=== PATIENT | male | born 1995 | race Caucasian/White ===

== ENCOUNTER 2024-08-02 07:52 | Outpatient (CLI) | payer BC, SELFPAY ==
--- NOTE | 2024-08-28 09:07 | WPDSLEEPSTUD ---
Sleep Study Date of Study: 08/02/24 Ordering Provider: Aga Jaimes MD Interpreting Physician: Nisha Graham DO Sleep Study Type: CPAP Titration Height: 1.88 m Weight: 154.221 kg Body Mass Index: 43.6 Neck Circumference (inches): 20 [place]: 10 Reason for Sleep Study Previously diagnosed TONG but couldn't tolerate CPAP Sleep History The patient is a 29-year-old male with previously diagnosed sleep apnea that had a sleep study ordered by his melon packer to optimize PAP pressure settings. The patient occasionally awakens from sleep short of breath. He rarely awakens at night with heartburn, belching or cough. He constantly snores loudly enough that others complain. He occasionally has trouble sleeping when he has a cold. He denies waking up gasping for air throughout the night. He occasionally has breathing problems at night observed by himself or others. He occasionally sweats excessively at night. He denies having heart palpitations or irregular heartbeats during the night. He occasionally falls asleep during the day but never while driving. He denies sleep paralysis, cataplexy and hypnagogic / hypnopompic hallucinations. He rarely has trouble at school or work due to sleepiness. He denies feeling afraid of going to sleep. He occasionally has nightmares. He frequently remembers his dreams. He occasionally has thoughts racing through his mind. He rarely feels sad or depressed. He rarely has anxiety. He denies having muscular tension. He denies noticing parts of his body jerk. He rarely kicks during the night. He rarely has crawling and aching feelings in his legs rarely has leg pain during the night. He denies grinding his teeth during sleep and denies awakening with morning jaw pain. He is rarely bothered by pain during the day and rarely awakened by pain during the night. He occasionally wakes up feeling stiff in the morning. He denies waking up with sore or achy muscles. He rarely wakes up with pain in the neck, spine or other joints. He goes to bed at 11:00 p.m. on weekdays and at midnight on the weekends. It takes him 15-60 minutes to fall asleep. He wakes up 1-3 times throughout the night to urinate or due to difficulty with CPAP. He is able to fall back asleep within 15 minutes. He does not have a set wake up time on either weekdays or weekends. He typically gets 9 hours of sleep per night. He will stay in bed for 5 minutes after waking up in the morning. He currently lives with his . He denies consuming any caffeinated beverages within 2 hours of bedtime. He denies engaging in physical exercise before bedtime. He denies reading and watching television before falling asleep. He will occasionally take naps in the afternoon or the evening and they are refreshing. He consumes less than 1 caffeinated beverage per day. He denies tobacco, alcohol and recreational drug use. [facility] Past Medical History Medical History GERD (gastroesophageal reflux disease) Obstructive sleep apnea Family History Family History Father Hypertension Social History Social History Smoking status: Never smoker Alcohol intake: never Medications Home Medications Medication Instructions Recorded Confirmed Type cetirizine 10 mg capsule (All Day 10 mg PO DAILY PRN 09/29/23 05/08/24 History Allergy (cetirizine)) lansoprazole 30 mg capsule,delayed 30 mg PO DAILY 09/29/23 05/08/24 History release eszopiclone 2 mg tablet (Lunesta) 2 mg PO QHS PRN sleep deprivation 01/22/24 05/08/24 Rx #30 tabs Sleep Procedure A full night CPAP Titration using the Inspirotec SleepExpan multi-channel system recorded the standard physiologic parameters including EEG, EOG, submentalis EMG, anterior tibialis EMG, EKG, body position, nasal and oral airflow using nasal pressure sensor and thermistor.? Respiratory parameters of chest and abdominal movements were recorded with Respiratory Inductance Plethysmography belts. Oxygen saturation was recorded by pulse oximetry. Video monitoring was also performed. Sleep stages, periodic limb movements, and EEG arousals were scored in 30 second epochs according to the criteria of the AASM Scoring Manual. The Apnea-Hypopnea Index was calculated using [facility] guidelines for definition of hypopnea with 4% O2 desaturations while scoring respiratory events. Sleep Architecture The total recording time was 417.8 minutes.? The total sleep time was 401.5 minutes. Sleep latency was 2.4 minutes. REM latency was 89.5 minutes. Sleep efficiency was 96.1%. The patient had 15 awakenings for an awakening index of 2.2. Wake after Sleep Onset time was 14.0 minutes. The patient spent 24.5 minutes, 6.1% of total sleep time in Stage N1. The patient spent 237.0 minutes, 59.0% in Stage N2. The patient spent 89.5 minutes, 22.3% in Stage N3. The patient spent 50.5 minutes, 12.6% in Stage REM. Respiratory Analysis The patient had 25 hypopneas for an overall Apnea Hypopnea Index of 3.7 events per hour. The REM Apnea Hypopnea Index was 10.7. The NREM Apnea Hypopnea Index was 2.7. The patient had a Central Apnea Hypopnea Index of 0. There were 17 Respiratory Effort Related Arousals resulting in a RERA index of 2.5 events per hour. The Respiratory Disturbance Index is 6.3 events per hour. There was no evidence of Nathanael-Ortiz Respirations. The patient was started on CPAP 5 cm H2O and titrated CPAP 17 cm H2O due to hypopneas. The patient was able to fall asleep starting on CPAP 5 cm H2O. The patient was able to achieve REM sleep starting on CPAP 11 cm H2O. The patient was able to achieve a residual AHI less than 5 with both NREM and REM sleep on 13 cm H2O and 15 cm H2O. On CPAP 15 cm H2O, the patient spent 68 minutes in NREM and 30 minutes in REM with 5 hypopneas, resulting in an AHI of 3.1. The patient had a sleep efficiency of 98% on this pressure setting. There was significant snoring on this pressure setting which is why he was titrated to 17 cm H2O. Arousals There were 108 total arousals for an arousal index of 16.1. There were 73 spontaneous arousals for an index of 10.9. ?There were 23 arousals due to respiratory events for an index of 3.4. There were 0 arousals due to periodic limb movements for an index of 0.? There were 12 arousals due to isolated limb movements for an index of 1.8. Periodic Limb Movements The patient had 25 isolated limb movements with an index of 3.7. The patient had 0 periodic limb movements with index of 0. Patient had a total of 25 limb movements with a total limb movement index of 3.7. Oximetry Data The patient had an average oxygen saturation of 94.6% in sleep with a minimum oxygen saturation of 89.0% and a maximum oxygen saturation of 98.0%. The patient had 27 oxygen desaturations that were 4% or greater resulting in an Oxygen Desaturation Index of 4.0.? The patient spent 0 minutes of total sleep time with an oxygen saturation below 88%. Snoring Profile Moderate to loud snoring was present during the study. The snoring resolved once the patient was titrated to 17 cm H2O. Cardiac Profile The EKG showed normal sinus rhythm. No arrhythmias or PVCs were seen. The patient had an average pulse rate of 72.7 bpm with a minimum pulse rate of 54.0 bpm and a maximum pulse rate of 107.0 bpm. ? EEG Profile No signs of seizure activity seen. Assessment and Plan Assessment and Plan (1) Obstructive sleep apnea: Code(s): G47.33 - Obstructive sleep apnea (adult) (pediatric) Status: Acute Assessment and Plan: The patient was started on CPAP 5 cm H2O and titrated CPAP 17 cm H2O due to hypopneas. The patient's sleep apnea resolved on several pressure settings. I recommend that the patient be prescribed CPAP 17 cm H2O, size large Resmed AirTouch F20 FFM, CPAP filters/tubing and heated humidity. This should be used with all episodes of sleep.? Compliance should be reviewed within 31-90 days of starting therapy for usage greater than 4 hours per night greater than 70% of the nights. The patient should be asked about symptoms such as?excessive daytime sleepiness, quality of sleep, decreased nocturia, increased?mental functioning such as memory, mood, and concentration. Data The data obtained during this sleep study is adequate for interpretation. Certification This sleep study has been reviewed by a board certified sleep medicine physician.
[2024-09-02 14:18] VITALS: BMI 43.6
== END 2024-08-03 07:25 | disposition home or self-care (01) ==
LOC: ANHCSM 07:53
PROVIDERS: Visit Provider Internal Medicine Critical Care Medicine
DX: G47.33 Obstructive sleep apnea (adult) (pediatric) (principal)
CPT/HCPCS: 95811

== ENCOUNTER 2024-12-17 15:03 | Emergency (ER) | payer BC, SELFPAY ==
[2024-12-17 15:27] VITALS: BP 134/82; PULSE 97; RESP 18; TEMP 36.4; O2SAT 100
[2024-12-17 15:54] LABS: Add Urine Microscopic? NO; Appearance Urine Clear (Clear); Bilirubin Urine Negative (Negative); Blood Urine Negative (Negative); Color Urine Yellow (Yellow); Glucose Urine UA Negative (Negative); Ketones Urine Negative (Negative); Leukocyte Esterase Ur Negative LEU/UL (Negative); Nitrate Urine Negative (Negative); Protein Urine Negative (Negative); Urobilinogen Urine 0.2 mg/dL (<2.0); pH Urine 7.5 (5.0-9.0)
--- OUTSIDE RECORDS SUMMARY | 2024-12-17 17:06 | XMS_ITS | Encounter Summary ---
Author Organization [facility] Healthcare Address [address] [place] [address] Care Team Providers Care Fly Frame Tender Name Role Phone Gwendolyn, Fe English DO Primary Care Provider [phone] Reason for Visit * Reason Comments Prediabetes Obesity Encounter Details Date Type Department Care Team (Latest Contact Info) Description 12/17/2024 1:00 PM CDT Clinical Support [facility] [address] [place] [id number] Prediabetes (Primary Dx); Morbid obesity with BMI of 40.0-44.9, adult (HCC) Social History Tobacco Use Types Packs/Day Years Used Date Smoking Tobacco: Never Cigarettes Smokeless Tobacco: Never AUDIT-C Answer Date Recorded Q1: How often do you have a drink containing alcohol? Never 12/05/2024 Q2: How many drinks containi ng alcohol do you have on a typical day when you are drinking? Patient does not drink Q3: How often do you have si x or more drinks on one occasion? Never 12/05/2024 PHQ-2 Answer Date Recorded PHQ-2 Total Score (If total score is 3 or more points, staff should administer the PHQ-9) 0 03/06/2024 Sex and Gender Information Value Date Recorded Sex Assigned at Not on file Legal Sex Male 11:48 AM RISK INTERN Gender Identity Not on file Sexual Orientation Not on file documented as of this encounter Last Filed Vital Signs Vital Sign Reading Time Taken Comments Blood Pressure - - Pulse - - Temperature - - Respiratory Rate - - Oxygen Saturation - - Inhaled Oxygen Concentration - - Weight 153.9 kg (339 lb 4.8 oz) 12/17/2024 4:21 PM CDT Height 188 cm (6' 2.02 ) 12/17/2024 4:21 PM CDT Body Mass Index 43.54 12/17/2024 4:21 PM CDT documented in this encounter Patient Instructions * Patient Instructions* Dorys Gupta RD - 12/17/2024 1:00 PM CDT Today, we discussed your current dietary habits, health goals, and personalized nutrition recommendations. Mistry topics included: Carbs, protein, and glucose tracking Goal 1) continue tracking before/after dinner glucose 2) include afternoon snack with protein 3) include protein with breakfast Next Steps: Follow up scheduled 01/08/25 at 10:30 AM to assess progress and adjust recommendations. Start with one actionable goal. Change is difficult and can take time. Reach out with any questions or concerns before the next visit. If you have any additional concerns or need further guidance, please contact me at the above phone number. Thank you for giving me the opportunity to help you reach your health goals. documented in this encounter Progress Notes * Dorys Gupta RD - 12/17/2024 1:00 PM CDT Follow Up Visit for Medical Nutrition Therapy Encounter Date: 12/17/2024 Referring Physician: Fe Snow DO Follow up from last visit of: 11/15/2024 Mr. Jorgito Horton is a 29 y.o. male : 1995 Start Time: 1300 End Time: 1400 Total Minutes: 60 min Ht 188 cm (6' 2.02 ) Wt (!) 153.9 kg (339 lb 4.8 oz) BMI 43.54 kg/m?? Weight change: 0.86 kg (1.90 lbs) ASSESSMENT: Medical Diagnosis: 1. Prediabetes 2. Morbid obesity with BMI of 40.0-44.9, adult (HCC) Procedure Summary Date: 12/11/24 Room / Location: [facility] Anesthesia Start: Anesthesia Stop: Procedure: FOLLOW UP NUTRITION Diagnosis: Scheduled Providers: Responsible Provider: Anesthesia Type: Not recorded ASA Status: Not recorded Past Medical History: Diagnosis Date Allergies GERD (gastroesophageal reflux disease) Lactose intolerance Nosebleed Prediabetes Sleep apnea Medications and Lab Review: HOME MEDICATIONS : aaruworujrcsh-ktsckkz-xorhjsue (EXCEDRIN MIGRAINE) 250-250-65 mg per tablet azelastine (ASTELIN) 137 mcg (0.1 %) nasal spray cetirizine (ZyrTEC) 10 mg chewable tablet eszopiclone (LUNESTA) 3 mg tablet omeprazole (PriLOSEC) 40 mg capsule ALT (SGPT) Date Value Ref Range Status 10/23/2024 18 9 - 46 U/L Final AST Date Value Ref Range Status 10/23/2024 13 10 - 40 U/L Final Alk phos Date Value Ref Range Status 10/23/2024 75 36 - 130 U/L Final Lab Results Component Value Date HGBA1C 5.7 (H) 10/23/2024 HDL 32 (L) 10/23/2024 LDLCALC 96 03/09/2024 CHOL 162 10/23/2024 TRIG 153 (H) 10/23/2024 Weight History Wt Readings from Last 10 Encounters: 12/17/24 (!) 153.9 kg (339 lb 4.8 oz) 12/05/24 (!) 153 kg (337 lb 6.4 oz) 11/15/24 (!) 153.4 kg (338 lb 3.2 oz) 11/13/24 (!) 153.4 kg (338 lb 3.2 oz) 11/08/24 (!) 154.9 kg (341 lb 8 oz) 11/06/24 (!) 154 kg (339 lb 9.6 oz) 07/31/24 (!) 151 kg (333 lb) 06/26/24 (!) 154.2 kg (340 lb) 03/06/24 (!) 155.9 kg (343 lb 9.6 oz) Physical Activity: Progress in dietary/exercise habits: no. IMPRESSION 12/10/2024: Jorgito kept excellent records of intakes and BG before and after meals for all three meals. Pt noticed elevated BG after high CHO meals like Dairy Thomson and pizza and biggest increases wereafter the evening meal. Discussed relationship between activity and BG. Discussed timing of meals and incorporating afternoon snack to prevent significant increases in BG at dinner. Pt plans to continue tracking BG after dinner as that is the area that is the biggest opportunity for improvement. Ptusually has cereal for breakfast. Encouraged pt to consider adding in source of protein with the cereal. Expect good adherence. DIAGNOSIS: Food and nutrition-related knowedge deficit related to lack of prior exposure to accurate nutrition-related information and as evidenced by client hx. INTERVENTION: Include fish 3 x/week or more as a source of omea-3 fat. Consistent carbohydrate intake. Blood glucose monitoring as directed. Weight Used for Equation Calculations (RD Determined): 153.9 kg (339 lb 4.8 oz) Amalia- St. Jeor Equation (Overweight or Obese Patients): 2564 BMI (Calculated): 43.5 Activity Factor: 1.2 Total Energy Needs using Amalia-St. Jeor: 3076.8 Recommended Kcal for Weight Loss: 2400 (15 kcal/kg CBW) Type of Weight Used for Estimated Carbohydrate Needs: Adjusted Recommended CHO per meal (gm): 75 Recommended CHO per snack (gm): 15 Total Planned Daily Carbohydrate (gm): 270 Type of Weight Used for Estimated Protein : Adjusted Total Protein Estimated Needs (gm): 123.12 Total Fat Needs Based on % of Calories: [address] Jeor Total Fat Estimated Needs (gm): 102.56 Type of Weight Used for Estimated Fluid Needs: Adjusted Fluid Needs Based on : 1 ml/kcal (1500 ml adult min) Counseling Strategies: goal setting, motivational interviewing, self-monitoring, and problem solving Goals: 1) continue tracking before/after dinner glucose 2) include afternoon snack with protein 3) include protein with breakfast MONITORING AND EVALUATION: Overall Adherence Potential: Current stage according to the Transtheoretical/Stages of Change Model: Stages of Change: Action Comprehension: good Receptivity: good Engagement: good Adherence: good Jorgito stated willingness to work on the goals listed above. Follow up scheduled to monitor and evaluate intakes, BG, progress. Dorys Gupta RD Diabetes Education and Nutritional Counseling [facility] documented in this encounter Plan of Treatment Not on file documented as of this encounter Visit Diagnoses Diagnosis Prediabetes- Primary Other abnormal glucose Morbid obesity with BMI of 40.0-44.9, adult (HCC) documented in this encounter Care Teams Fly Frame Tender Relationship Specialty Start Date End Date Fe Snow DO [address] [place] [address] PCP - General Family Medicine 01/18/24 documented as of this encounter
--- OUTSIDE RECORDS SUMMARY | 2024-12-17 17:06 | XMS_ITS | Referral Summary ---
Author Organization [facility] [facility] [id number] [place] Address [address] [place] [address] Care Team Providers Care Separator Tender Name Role Phone Gwendolyn, Fe English DO Primary Care Provider [phone] Encounters Date Type Department Care Team Description 12/17/2024 1:00 PM CDT Clinical Support [facility] Nutrition Counseling [facility] [place] [address] Prediabetes (Primary Dx); Morbid obesity with BMI of 40.0-44.9, adult (HCC) 12/05/2024 9:20 AM DRY HOUSE WORKER Office Visit [facility] ([facility] - [facility] ENT [address] [place] [address] [place] [address] Belgica Pompa PA Pulsatile tinnitus of left ear (Primary Dx) 12/05/2024 8:00 AM DRY HOUSE WORKER Procedure visit [facility] Otolaryngology [address] [place] [address] [place] [address] Alexandra Jerome Au.D. Pulsatile tinnitus of left ear (Primary Dx); Ear pressure, left 11/15/2024 2:30 PM DRY HOUSE WORKER Clinical Support [facility] Nutrition Counseling [facility] [place] [address] Prediabetes (Primary Dx); Morbid obesity with BMI of 40.0-44.9, adult (HCC) 11/13/2024 12:30 PM DRY HOUSE WORKER Office Visit [facility] Family Medicine [address] [facility] [address] [place] [phone] Fe Snow, Prediabetes (Primary Dx); Adverse effect of drug, subsequent encounter; Gastroesophageal reflux disease without esophagitis; Morbid obesity with BMI of 40.0-44.9, adult (HCC); Anxiety 11/08/2024 3:15 PM DRY HOUSE WORKER Office Visit [facility] at [address] [phone] Emma Palm NP Anxiety (Primary Dx); Palpitations 11/08/2024 Nurse Triage [address] [place] [phone] Fe Snow DO 11/07/2024 Nurse Triage [address] [address] Fe Snow DO 11/06/2024 1:45 PM DRY HOUSE WORKER Office Visit [address] [place] [phone] Fe Snow DO Prediabetes (Primary Dx); Morbid obesity with BMI of 40.0-44.9, adult ([facility]); Hypertriglyceridemia ; Gastroesophageal reflux disease without esophagitis; Lactose intolerance; Bilateral lower abdominal discomfort 10/22/[address] [address] Fe Snow DO Additional Services Or Orders from Last 3 Months Allergies Active Allergy Reactions Criticality Noted Date Comments Cow Dander Itching Low 12/05/2024 Histamine Itching Low 12/05/2024 House Dust Mite Itching Low 12/05/2024 [place] Itching Low 12/05/2024 Plantain, Plant Itching Low 12/05/2024 Ragweed Itching Low 12/05/2024 Tree Pollen-Mason Itching Low 12/05/2024 [place] Pollen-Irish Thistle Itching Low 12/05/19 Happy Bark-Red [place]-Borage Itching Low 2024 Medications azelastine (ASTELIN) 137 mcg (0.1 %) nasal spray SPRAY 1 SPRAY INTO EACH NOSTRIL EVERY DAY 4 Active eszopiclone (LUNESTA) 3 mg tablet PLEASE SEE ATTACHED FOR DETAILED DIRECTIONS 5 Active acetaminophen-as pirin-caffeine (EXCEDRIN MIGRAINE) 250-250-65 mg per tablet Take 2 tablets by mouth every 6 (six) hours as needed for headaches Active cetirizine (ZyrTEC) 10 mg chewable tablet Take 1 tablet (10 mg total) by mouth daily Active omeprazole (PriLOSEC) 40 mg capsuleIndicatio ns:Gastroesophag eal reflux disease without esophagitis Take 1 capsule (40 mg total) by mouth daily 30 capsule 3 5 Active Active Problems Problem Noted Date Diagnosed Date Pulsatile tinnitus of left ear 12/05/2024 Chronic eczematous otitis externa of both ears 0 07/04/2024 Assessment & Plan (07/04/2024 3:09 PM CDT): Avoid ear cleaning techniques Avoid water to ears Lotrisone cream to outer portion of ear canal twice daily for 2 weeks and then as needed Vinegar and alcohol discussed and Handout provided Prediabetes 03/18/2024 Hypertriglyceridemia 03/18/2024 Morbid obesity with BMI of 40.0-44.9, adult 02/07 Gastroesophageal reflux disease without esophagi tis 03/06/2024 TONG on CPAP 03/06/2024 Immunizations Immunization Administration Dates Next Due COVID-19 mRNA ([employer]) 0.3 m L (30 mcg) vaccine (12 years and up) 12/14/2023 HPV9 09/14/2024 Hep A / Hep B 09/14/2024 Influenza, Quadrivalent, Spl it, Intramuscular 05/24/2019 Influenza, Trivalent, Cell Culture-based MDCK, Preservative Free, Antibiotic Free, Intramuscular 07/16/2021,07/31/2020 Influenza, Trivalent, Preser vative Free, Intramuscular 07/31/2024 Influenza, Unspecified 07/09/2023(Deferred: Terri ent Refused) Tdap 08/23/2024 Typhoid Inactivated 09/14/2024 Social History Tobacco Use Types Packs/Day Years Used Date Smoking Tobacco: Never Cigarettes Smokeless Tobacco: Never Tobacco Cessation:Counseling Given: Not Answered AUDIT-C Answer Date Recorded Q1: How often [...] on file Legal Sex Male 11:48 AM DRY HOUSE WORKER Gender Identity Not on file Sexual Orientation Not on file Last Filed Vital Signs Vital Sign Reading Time Taken Comments Blood Pressure 105/71 12/05/2024 8:56 AM DRY HOUSE WORKER Pulse 69 12/05/2024 8:56 AM DRY HOUSE WORKER Temperature 36.4 C (97.5 F) 11/13/2024 12:45 PM DRY HOUSE WORKER Respiratory Rate 20 11/13/2024 12:4 5 PM DRY HOUSE WORKER Oxygen Saturation 99% 11/13/2024 12: 45 PM DRY HOUSE WORKER Inhaled Oxygen Concentration - - Weight 153.9 kg (339 lb 4.8 oz) 12/17/2024 4:21 PM CDT Height 188 cm (6' 2.02 ) 12/17/2024 4:21 PM CDT Body Mass Index 43.54 12/17/2024 4:21 PM CDT Plan of Treatment Not on file Procedures Procedure Name Priority Date/Time Associated Diagnosis Comments AUDBASE RESULTS 12/05/2024 8:03 AM DRY HOUSE WORKER HEMOGLOBIN A1C Routine 10/23/2024 10:12 AM DRY HOUSE WORKER Prediabetes LIPID PANEL Routine 10/23/2024 10:12 AM DRY HOUSE WORKER Hypertriglyceridem ia COMPREHENSIVE METABOLIC PANEL Routine 10/23/2024 10:12 AM DRY HOUSE WORKER Prediabetes CBC WITH AUTO DIFFERENTIAL Routine 10/23/2024 10:12 AM DRY HOUSE WORKER Prediabetes from Last 3 Months Results * AudBase Results (12/05/2024 8:03 AM DRY HOUSE WORKER) Provider Scanning AUDIOLOGY SERVICES ORDERABLES Final Result * (ABNORMAL) CBC with auto differential (10/23/2024 10:12 AM DRY HOUSE WORKER) WBC 8.1 3.8 - 10.8 Thousand/u L [facility] RBC, POC 5.31 4.20 - 5.80 Million/uL [facility] Hgb 14.7 13.2 - 17.1 g/dL [facility] Hct 46.2 38.5 - 50.0 % [facility] MCV 87.0 80.0 - 100.0 fL [facility] MCH 27.7 27.0 - 33.0 pg [facility] MCHC 31.8(L) 32.0 - 36.0 g/dL [facility] Comment: For adults, a slight decrease in the calculated MCHC value (in the range of 30 to 32 g/dL) is most likely not clinically significant; however, it should be interpreted with caution in correlation with other red cell parameters and the patient's clinical condition. Rdw 13.2 11.0 - 15.0 % [facility] Platelets 235 140 - 400 Thousand/u L [facility] MPV 10.7 7.5 - 12.5 fL [facility] Neutrophils, abs 5,046 1,500 - 7,800 cells/uL [facility] Lymphocytes, abs 2,082 850 - 3,900 cells/uL [facility] Monocyte abs 462 200 - 950 cells/uL [facility] Eosinophils, abs 437 15 - 500 cells/uL [facility] Basophils, abs 73 0 - 200 cells/uL [facility] Neutrophils 62.3 % [facility] Lymphocyte pct 25.7 % [facility] Monocytes 5.7 % [facility] Eosinophils 5.4 % [facility] Basophils 0.9 % [facility] Blood 10/23/2024 10:1 2 AM DRY HOUSE WORKER 10/23/2024 10:15 AM DRY HOUSE WORKER Narrative [facility] - 10/23/2024 10:05 PM DRY HOUSE WORKER FASTING:YES FASTING: YES us Fe Snow DO LAB BLOOD ORDERABLES Final Resul t Performing Organization Address [facility] de Phone Number [facility] [address] [place] [address] * (ABNORMAL) Hemoglobin A1c (10/23/2024 10:12 AM DRY HOUSE WORKER) Hgb A1C 5.7(H) <5.7 % of total Hgb [facility] Comment: For someone without known diabetes, a hemoglobin A1c value between 5.7% and 6.4% is consistent with prediabetes and should be confirmed with a follow-up test. For someone with known diabetes, a value <7% indicates that their diabetes is well controlled. A1c targets should be individualized based on duration of diabetes, age, comorbid conditions, and other considerations. This assay result is consistent with an increased risk of diabetes. Currently, no consensus exists regarding use of hemoglobin A1c for diagnosis of diabetes for children. Blood 10/23/2024 10:1 2 AM DRY HOUSE WORKER 10/23/2024 10:15 AM DRY HOUSE WORKER Narrative [facility] - 10/23/2024 10:05 PM DRY HOUSE WORKER FASTING:YES FASTING: YES us Fe Snow DO LAB BLOOD ORDERABLES Final Resul t Performing Organization Address [facility] de Phone Number [facility] [address] [place] [address] * (ABNORMAL) Lipid panel (10/23/2024 10:12 AM DRY HOUSE WORKER) Cholesterol 162 <200 mg/dL [facility] HDL 32(L) > OR = 40 mg/dL [facility] Triglycerides 153(H) <150 mg/dL [facility] LDL 103(H) mg/dL (calc) [facility] Comment: Reference range: <100 Desirable range <100 mg/dL for primary prevention; <70 mg/dL for patients with CHD or diabetic patients with > or = 2 CHD risk factors. LDL-C is now calculated using the Addie calculation, which is a validated novel method providing better accuracy than the Friedewald equation in the estimation of LDL-C. Dell MORALES et al. RALPH. 2013;310(19): 8441-2435 (http://education.JobSync/faq/SAY720) Chol/HDL ratio 5.1(H) <5.0 (calc) [facility] Garcia Non-HDL, (LDL+VLDL) 130(H) <130 mg/dL (calc) [facility] Comment: For patients with diabetes plus 1 major ASCVD risk factor, treating to a non-HDL-C goal of <100 mg/dL (LDL-C of <70 mg/dL) is considered a therapeutic option. Blood 10/23/2024 10:1 2 AM DRY HOUSE WORKER 10/23/2024 10:15 AM DRY HOUSE WORKER Narrative [facility] - 10/23/2024 10:05 PM DRY HOUSE WORKER FASTING:YES FASTING: YES Fe Snow DO LAB BLOOD ORDERABLES Final Resul t [facility] [address] [place] [address] * Comprehensive metabolic panel (10/23/2024 10:12 AM DRY HOUSE WORKER) [facility] Glucose 94 65 - 99 mg/dL [facility] Garcia Comment: Fasting reference interval BUN 13 7 - 25 mg/dL [facility] KakKstatiDeborah Garcia Creatinine 0.83 0.60 - 1.26 mg/dL [employer] [facility] eGFR 120 > OR = 60 mL/min/1.7 3m2 [facility] Garcia BUN/creat ratio SEE NOTE: 6 - 22 (calc) Harish KakKstatiDeborah Garcia Comment: Not Reported: BUN and Creatinine are within reference range. Sodium 138 135 - 146 mmol/L [facility] khushbu Garcia Potassium, pl 4.4 3.5 - 5.3 mmol/L [employer] Esthela-S khushbu Garcia Chloride 100 98 - 110 mmol/L [facility] Garcia CO2 32 20 - 32 mmol/L [facility] Garcia Calcium 9.8 8.6 - 10.3 mg/dL [facility] Protein, sr 7.6 6.1 - 8.1 g/dL [facility] Albumin 4.6 3.6 - 5.1 g/dL [facility] GLOBULIN 3.0 1.9 - 3.7 g/dL (calc) [facility] Alb/glob ratio 1.5 1.0 - 2.5 (calc) [facility] Bilirubin, total 0.6 0.2 - 1.2 mg/dL [facility] Alk phos 75 36 - 130 U/L [facility] AST 13 10 - 40 U/L [facility] ALT (SGPT) 18 9 - 46 U/L [facility] Blood 10/23/2024 10:1 2 AM DRY HOUSE WORKER 10/23/2024 10:15 AM DRY HOUSE WORKER Narrative [facility] - 10/23/2024 10:05 PM DRY HOUSE WORKER FASTING:YES FASTING: YES Fe Snow DO LAB BLOOD ORDERABLES Final Resul t [facility] [address] [place] [address] from Last 3 Months Insurance [place] Care Teams Separator Tender Relationship Specialty Start Date End Date Fe Snow DO [address] [place] [address] PCP - General Family Medicine 01/18/24
--- OUTSIDE RECORDS SUMMARY | 2024-12-17 17:06 | XMS_ITS | Clinical Summary ---
Author Organization [place] [id number] [place] Address [address] [place] [address] Care Team Providers Care Snath Handle Assembler Name Role Phone Gwendolyn, Fe English DO Primary Care Provider [phone] Allergies Active Allergy Reactions Criticality Noted Date Comments Cow Dander Itching Low 12/05/2024 Histamine Itching Low 12/05/2024 House Dust Mite Itching Low 12/05/2024 [place] Itching Low 12/05/2024 Plantain, Plant Itching Low 12/05/2024 Ragweed Itching Low 12/05/2024 Tree Pollen-Clarence Itching Low 12/05/2024 [place]ane Pollen-Moroccan Thistle Itching Low 12/05/19 25 [place] Bark-Red [place]-Borage Itching Low 2024 Medications azelastine (ASTELIN) 137 [...] esophagi tis 03/06/2024 TONG on CPAP 03/06/2024 Encounters Date Type Department Care Team Description 12/17/2024 1:00 PM CDT Clinical Support [facility] Nutrition Counseling [address] [place] [address] Prediabetes (Primary Dx); Morbid obesity with BMI of 40.0-44.9, adult ([facility]) 12/05/2024 9:20 AM EMERGENCY DISPATCHER Office Visit [facility] ([facility]) - [facility] ENT [address] 11[address] [place] [address] [place] [address] Belgica Pompa PA Pulsatile tinnitus of left ear (Primary Dx) 12/05/2024 8:00 AM EMERGENCY DISPATCHER Procedure visit [facility] Otolaryngology [address] [place] [address] [place] [address] Alexandra Jerome Au.D. Pulsatile tinnitus of left ear (Primary Dx); Ear pressure, left 11/15/2024 2:30 PM EMERGENCY DISPATCHER Clinical Support [facility] Nutrition Counseling [address] [place] [address] Prediabetes (Primary Dx); Morbid obesity with BMI of 40.0-44.9, adult (HCC) 11/13/2024 12:30 PM EMERGENCY DISPATCHER Office Visit [facility] Family Medicine [address] [facility] [address] [place] [phone] Fe Snow, DO Prediabetes (Primary Dx); Adverse effect of drug, subsequent encounter; Gastroesophageal reflux disease without esophagitis; Morbid obesity with BMI of 40.0-44.9, adult (HCC); Anxiety 11/08/2024 3:15 PM EMERGENCY DISPATCHER Office Visit [facility] Care at [address] [phone] Emma Palm NP Anxiety (Primary Dx); Palpitations 11/08/2024 Nurse Triage [address] [place] [phone] Fe Snow DO 11/07/2024 Nurse Triage [address] [place] [phone] Fe Snow DO 11/06/2024 1:45 PM EMERGENCY DISPATCHER Office Visit [address] [place] [phone] Fe Snow DO Prediabetes (Primary Dx); Morbid obesity with BMI of 40.0-44.9, adult ([facility]); Hypertriglyceridemia ; Gastroesophageal reflux disease without esophagitis; Lactose intolerance; Bilateral lower abdominal discomfort 10/22/[address] [place] [phone] Fe Snow DO Additional Services Or Orders from Last 3 Months Immunizations Immunization Administration Dates Next Due COVID-19 mRNA ([employer]) 0.3 m L (30 mcg) vaccine (12 years and up) 12/14/2023 HPV9 09/14/2024 Hep A / Hep B 09/14/2024 Influenza, Quadrivalent, Spl it, Intramuscular 05/24/2019 Influenza, Trivalent, Cell Culture-based MDCK, Preservative Free, Antibiotic Free, Intramuscular 07/16/2021,07/31/2020 Influenza, Trivalent, Preser vative Free, Intramuscular 07/31/2024 Influenza, Unspecified 07/09/2023(Deferred: Terri ent Refused) Tdap 08/23/2024 Typhoid Inactivated 09/14/2024 Medical History Medical History Date Comments Sleep apnea Lactose intolerance GERD (gastroesophageal reflux disease) Allergies Nosebleed Prediabetes Family History Medical History Relation Name Comments Hypertension Father Gerardo Sleep apnea Father Gerardo Relation Name Status Comments Father Gerardo Alive Social History Tobacco Use Types Packs/Day Years [...] on file Legal Sex Male 11:48 AM EMERGENCY DISPATCHER Gender Identity Not on file Sexual Orientation Not on file Obstetrics History Last Filed Vital Signs Vital Sign Reading Time Taken Comments Blood Pressure 105/71 12/05/2024 8:56 AM EMERGENCY DISPATCHER Pulse 69 12/05/2024 8:56 AM EMERGENCY DISPATCHER Temperature 36.4 C (97.5 F) 11/13/2024 12:45 PM EMERGENCY DISPATCHER Respiratory Rate 20 11/13/2024 12:4 5 PM EMERGENCY DISPATCHER Oxygen Saturation 99% 11/13/2024 12: 45 PM EMERGENCY DISPATCHER Inhaled Oxygen Concentration - - Weight 153.9 kg (339 lb 4.8 oz) 12/17/2024 4:21 PM CDT Height 188 cm (6' 2.02 ) 12/17/2024 4:21 PM CDT Body Mass Index 43.54 12/17/2024 4:21 PM CDT Plan of Treatment Health Maintenance Due Date Last Done Comments Hepatitis C Screening 1993 Varicella Vaccines (1 of 2 - 13+ 2-dose series) 2006 HPV Vaccines (2 - 3-dose SCDM series) 10/12/2024 09/14/2024 Depression Screening 03/06/2025 03/06/2024 Regular Well Visit/Exam 18-64 03/06/2025 03/06/2024 DTaP/Tdap/Td Vaccine (2 - Td or Tdap) 08/23/2034 08/23/2024 Influenza Vaccine Completed 07/31/2024, , 07/31/2020, Additional history exists Covid-19 Vaccine Completed 08/23/2024, 04/2024, 09/10/2021, Additional history exists Hepatitis B Screening Completed 09/14/2024 Pneumococcal vaccine <65 Aged Out No longer eligible based on patient's age to complete this topic Procedures Procedure Name Priority Date/Time Associated Diagnosis Comments AUDBASE RESULTS 12/05/2024 8:03 AM EMERGENCY DISPATCHER HEMOGLOBIN A1C Routine 10/23/2024 10:12 AM EMERGENCY DISPATCHER Prediabetes LIPID PANEL Routine 10/23/2024 10:12 AM EMERGENCY DISPATCHER Hypertriglyceridem ia COMPREHENSIVE METABOLIC PANEL Routine 10/23/2024 10:12 AM EMERGENCY DISPATCHER Prediabetes CBC WITH AUTO DIFFERENTIAL Routine 10/23/2024 10:12 AM EMERGENCY DISPATCHER Prediabetes from Last 3 Months Results * AudBase Results (12/05/2024 8:03 AM EMERGENCY DISPATCHER) us Provider Scanning AUDIOLOGY SERVICES ORDERABLES Final Result * (ABNORMAL) CBC with auto differential (10/23/2024 10:12 AM EMERGENCY DISPATCHER) WBC 8.1 3.8 - 10.8 Thousand/u L [...] 13.2 11.0 - 15.0 % [facility] Platelets 235 140 - 400 Thousand/u L [facility] MPV 10.7 7.5 - 12.5 fL [facility] Neutrophils, abs 5,046 1,500 - 7,800 cells/uL [...] Jose Lymphocyte pct 25.7 % [facility] Monocytes 5.7 % [facility] Eosinophils 5.4 % [facility] Basophils 0.9 % [facility] Garcia Blood 10/23/2024 10:1 2 AM EMERGENCY DISPATCHER 10/23/2024 10:15 AM EMERGENCY DISPATCHER Narrative [facility] - 10/23/2024 10:05 PM EMERGENCY DISPATCHER FASTING:YES FASTING: YES Fe Snow DO LAB BLOOD ORDERABLES Final Resul t HARISH [facility] [place] [address] [place] [address] * (ABNORMAL) Hemoglobin A1c (10/23/2024 10:12 AM EMERGENCY DISPATCHER) Hgb A1C 5.7(H) <5.7 % of total Hgb Harish [facility] Comment: For someone without known diabetes, [...] for children. Blood 10/23/2024 10:1 2 AM EMERGENCY DISPATCHER 10/23/2024 10:15 AM EMERGENCY DISPATCHER Narrative [facility] - 10/23/2024 10:05 PM EMERGENCY DISPATCHER FASTING:YES FASTING: YES us Fe Snow DO LAB BLOOD ORDERABLES Final Resul t [facility] [address] [place] [address] * (ABNORMAL) Lipid panel (10/23/2024 10:12 AM EMERGENCY DISPATCHER) Pathologist [facility] Cholesterol 162 <200 mg/dL Harish [facility] Medical[facility] khushbu Garcia HDL 32(L) > OR = 40 mg/dL [facility]bu Garcia Triglycerides 153(H) <150 mg/dL [facility] Garcia LDL 103(H) mg/dL (calc) [facility] Garcia Comment: Reference range: <100 Desirable range <100 mg/dL for primary prevention; <70 mg/dL for patients with CHD or diabetic patients with > or = 2 CHD risk factors. LDL-C is now calculated using the Dell-Abreu calculation, which is a validated novel method providing better accuracy than the Friedewald equation in the estimation of LDL-C. Dell SS et al. RALPH. 2013;310(19): 6012-5595 (http://education.Bujbu/faq/QFA922) Chol/HDL ratio 5.1(H) <5.0 (calc) [facility] khushbu Garcia Non-HDL, (LDL+VLDL) 130(H) <130 mg/dL (calc) [facility] Garcia Comment: For patients with diabetes plus 1 major ASCVD risk factor, treating to a non-HDL-C goal of <100 mg/dL (LDL-C of <70 mg/dL) is considered a therapeutic option. Blood 10/23/2024 10:1 2 AM EMERGENCY DISPATCHER 10/23/2024 10:15 AM EMERGENCY DISPATCHER Narrative [facility] - 10/23/2024 10:05 PM EMERGENCY DISPATCHER FASTING:YES FASTING: YES us Fe Snow DO LAB BLOOD ORDERABLES Final Resul t HARISH Umanzor [facility] [address] [place] [address] * Comprehensive metabolic panel (10/23/2024 10:12 AM EMERGENCY DISPATCHER) Glucose 94 65 - 99 mg/dL Harish [facility] Comment: Fasting reference interval BUN 13 7 - 25 mg/dL Harish [facility] Creatinine 0.83 0.60 - 1.26 mg/dL [facility] eGFR 120 > OR = 60 mL/min/1.7 3m2 Harish [facility] BUN/creat ratio SEE NOTE: 6 - 22 (calc) Harish [facility] Garcia Comment: Not Reported: BUN and Creatinine are within reference range. Sodium 138 135 - 146 mmol/L [facility] khushbu Garcia Potassium, pl 4.4 3.5 - 5.3 mmol/L [facility] Chloride 100 98 - 110 mmol/L [facility] Garcia CO2 32 20 - 32 mmol/L [facility] Garcia Calcium 9.8 8.6 - 10.3 mg/dL [facility] Protein, sr 7.6 6.1 - 8.1 g/dL [facility] Albumin 4.6 3.6 - 5.1 g/dL [facility] GLOBULIN 3.0 1.9 - 3.7 g/dL (calc) [facility] Garcia Alb/glob ratio 1.5 1.0 - 2.5 (calc) [facility] Garcia Bilirubin, total 0.6 0.2 - 1.2 mg/dL Harish [facility] Garcia Alk phos 75 36 - 130 U/L [facility] AST 13 10 - 40 U/L [facility] ALT (SGPT) 18 9 - 46 U/L [facility] Garcia Blood 10/23/2024 10:1 2 AM EMERGENCY DISPATCHER 10/23/2024 10:15 AM EMERGENCY DISPATCHER Narrative [facility] - 10/23/2024 10:05 PM EMERGENCY DISPATCHER FASTING:YES FASTING: YES Fe Snow DO LAB BLOOD ORDERABLES Final Resul t [facility] [address] [place] [address] from Last 3 Months Insurance [employer] ACCESS CHOICE OR [employer] CHOICE OR Care Teams Snath Handle Assembler Relationship Specialty Start Date End Date Fe Snow DO [address] [place] [address] PCP - General Family Medicine 01/18/24
--- OUTSIDE RECORDS SUMMARY | 2024-12-17 18:09 | XMS_ITS | Clinical Summary ---
Author Organization [place] [id number] [place] Address [address] [place] [phone] Care Team Providers Care Biometrician Name Role Phone Gwendolyn, Fe English DO Primary Care Provider [phone] Allergies Active Allergy Reactions Criticality Noted Date Comments Cow Dander Itching Low 12/05/2024 Histamine Itching Low 12/05/2024 House Dust Mite Itching Low 12/05/2024 [place] Itching Low 12/05/2024 Plantain, Plant Itching Low 12/05/2024 Ragweed Itching Low 12/05/2024 Tree Pollen-[place] Itching Low 12/05/2024 Burt Pollen-Mongolian Thistle Itching Low 12/05/19 25 [place] Bark-Red [place]-Borage Itching Low 2024 Medications azelastine (ASTELIN) 137 [...] Description 12/17/2024 1:00 PM CDT Clinical Support [facility] Nutrition Counseling [address] [place] [address] Prediabetes (Primary Dx); Morbid obesity with BMI of 40.0-44.9, adult ([facility]) 12/05/2024 9:20 AM SOLAR SYSTEM DESIGNER Office Visit [facility] ([facility]) - [facility] ENT [address] [address] 11th [place] [address] [place] [address] Belgica Pompa PA Pulsatile tinnitus of left ear (Primary Dx) 12/05/2024 8:00 AM SOLAR SYSTEM DESIGNER Procedure visit [facility] Otolaryngology [address]th [place] [address] [place] [address] Alexandra Jerome Au.D. Pulsatile tinnitus of left ear (Primary Dx); Ear pressure, left 11/15/2024 2:30 PM SOLAR SYSTEM DESIGNER Clinical Support [facility] Nutrition Counseling [address] [place] [address] Prediabetes (Primary Dx); Morbid obesity with BMI of 40.0-44.9, adult (HCC) 11/13/2024 12:30 PM SOLAR SYSTEM DESIGNER Office Visit [facility] Family Medicine [address] [facility] [address] [place] [phone] Fe Snow, DO Prediabetes (Primary Dx); Adverse effect of drug, subsequent encounter; Gastroesophageal reflux disease without esophagitis; Morbid obesity with BMI of 40.0-44.9, adult (HCC); Anxiety 11/08/2024 3:15 PM SOLAR SYSTEM DESIGNER Office Visit [facility] Care at [address] [phone] Emma Palm NP Anxiety (Primary Dx); Palpitations 11/08/2024 Nurse Triage [address] [place] [phone] Fe Snow DO 11/07/2024 Nurse Triage [address] [place] [phone] Fe Snow DO 11/06/2024 1:45 PM SOLAR SYSTEM DESIGNER Office Visit [address] [place] [phone] Fe Snow DO Prediabetes (Primary Dx); Morbid obesity with BMI of 40.0-44.9, adult ([facility]); Hypertriglyceridemia ; Gastroesophageal reflux disease without esophagitis; Lactose intolerance; Bilateral lower abdominal discomfort 10/22/[address] [place] [phone] Fe Snow DO Additional Services Or Orders from Last 3 Months Immunizations Immunization Administration Dates Next Due COVID-19 mRNA (COGEON) 0.3 m L (30 mcg) vaccine (12 [...] on file Legal Sex Male 11:48 AM SOLAR SYSTEM DESIGNER Gender Identity Not on file Sexual Orientation Not on file Obstetrics History Last Filed Vital Signs Vital Sign Reading Time Taken Comments Blood Pressure 105/71 12/05/2024 8:56 AM SOLAR SYSTEM DESIGNER Pulse 69 12/05/2024 8:56 AM SOLAR SYSTEM DESIGNER Temperature 36.4 C (97.5 F) 11/13/2024 12:45 PM SOLAR SYSTEM DESIGNER Respiratory Rate 20 11/13/2024 12:4 5 PM SOLAR SYSTEM DESIGNER Oxygen Saturation 99% 11/13/2024 12: 45 PM SOLAR SYSTEM DESIGNER Inhaled Oxygen Concentration - - Weight 153.9 [...] Diagnosis Comments AUDBASE RESULTS 12/05/2024 8:03 AM SOLAR SYSTEM DESIGNER HEMOGLOBIN A1C Routine 10/23/2024 10:12 AM SOLAR SYSTEM DESIGNER Prediabetes LIPID PANEL Routine 10/23/2024 10:12 AM SOLAR SYSTEM DESIGNER Hypertriglyceridem ia COMPREHENSIVE METABOLIC PANEL Routine 10/23/2024 10:12 AM SOLAR SYSTEM DESIGNER Prediabetes CBC WITH AUTO DIFFERENTIAL Routine 10/23/2024 10:12 AM SOLAR SYSTEM DESIGNER Prediabetes from Last 3 Months Results * AudBase Results (12/05/2024 8:03 AM SOLAR SYSTEM DESIGNER) us Provider Scanning AUDIOLOGY SERVICES ORDERABLES Final Result * (ABNORMAL) CBC with auto differential (10/23/2024 10:12 AM SOLAR SYSTEM DESIGNER) WBC 8.1 3.8 - 10.8 Thousand/u L [...] khushbu Garcia Blood 10/23/2024 10:1 2 AM SOLAR SYSTEM DESIGNER 10/23/2024 10:15 AM SOLAR SYSTEM DESIGNER Narrative [facility] - 10/23/2024 10:05 PM SOLAR SYSTEM DESIGNER FASTING:YES FASTING: YES Fe Snow DO LAB BLOOD ORDERABLES Final Resul t HARISH Umanzor [facility] [place] [address] * (ABNORMAL) Hemoglobin A1c (10/23/2024 10:12 AM SOLAR SYSTEM DESIGNER) Hgb A1C 5.7(H) <5.7 % of total Hgb Harish [employer]-Sam Garcia Comment: For someone without known diabetes, [...] for children. Blood 10/23/2024 10:1 2 AM SOLAR SYSTEM DESIGNER 10/23/2024 10:15 AM SOLAR SYSTEM DESIGNER Narrative [facility] - 10/23/2024 10:05 PM SOLAR SYSTEM DESIGNER FASTING:YES FASTING: YES us Fe Snow DO LAB BLOOD ORDERABLES Final Resul t HARISH [facility] TechnologyFort [facility] Indian HospitalCon[facility] [address] [place] [address] * (ABNORMAL) Lipid panel (10/23/2024 10:12 AM SOLAR SYSTEM DESIGNER) Pathologist [facility] Cholesterol 162 <200 mg/dL Harish DataCertSam khushbu Garcia HDL 32(L) > OR = 40 mg/dL Prover TechnologySam khushbu Garcia Triglycerides 153(H) <150 mg/dL [employer] Times RestaurantsSam khushbu Garcia LDL 103(H) mg/dL (calc) [facility] Times RestaurantsS khushbu Garcia Comment: Reference range: <100 Desirable range <100 mg/dL for primary prevention; <70 mg/dL for patients with CHD or diabetic patients with > or = 2 CHD risk factors. LDL-C is now calculated using the Dell-Abreu calculation, which is a validated novel method providing better accuracy than the Friedewald equation in the estimation of LDL-C. Dell SS et al. RALPH. 2013;310(19): 7363-4957 (http://education.Meaningo/faq/ZWR116) Chol/HDL ratio 5.1(H) <5.0 (calc) [employer] Times RestaurantsSam khushbu Garcia Non-HDL, (LDL+VLDL) 130(H) <130 mg/dL (calc) [employer] Restaur[employer]Sam khushbu Garcia Comment: For patients with diabetes plus 1 major ASCVD risk factor, treating to a non-HDL-C goal of <100 mg/dL (LDL-C of <70 mg/dL) is considered a therapeutic option. Blood 10/23/2024 10:1 2 AM SOLAR SYSTEM DESIGNER 10/23/2024 10:15 AM SOLAR SYSTEM DESIGNER Narrative [facility] - 10/23/2024 10:05 PM SOLAR SYSTEM DESIGNER FASTING:YES FASTING: YES us Fe Snow DO LAB BLOOD ORDERABLES Final Resul t HARISH Umanzor DataCertElina Garcia [address] [place] [address] * Comprehensive metabolic panel (10/23/2024 10:12 AM SOLAR SYSTEM DESIGNER) Glucose 94 65 - 99 mg/dL Harish [employer]Sam Garcia Comment: Fasting reference interval BUN 13 7 - 25 mg/dL Harish [employer]Sam Garcia Creatinine 0.83 0.60 - 1.26 mg/dL Harish Proctor-Sam Garcia eGFR 120 > OR = 60 mL/min/1.7 3m2 Harish [employer]Sam Garcia BUN/creat ratio SEE NOTE: 6 - 22 (calc) Harish [employer]-S khushbu Garcia Comment: Not Reported: BUN and [...] ratio 1.5 1.0 - 2.5 (calc) [facility] [employer]S khushbu Garcia Bilirubin, total 0.6 0.2 - 1.2 mg/dL Harish [employer]-S khushbu Garcia Alk phos 75 36 - 130 U/L [facility] khushbu Garcia AST 13 10 - 40 U/L [facility] khushbu Garcia ALT (SGPT) 18 9 - 46 U/L [employer]-S khushbu Garcia Blood 10/23/2024 10:1 2 AM SOLAR SYSTEM DESIGNER 10/23/2024 10:15 AM SOLAR SYSTEM DESIGNER Narrative [facility] - 10/23/2024 10:05 PM SOLAR SYSTEM DESIGNER FASTING:YES FASTING: YES Fe Snow DO LAB BLOOD ORDERABLES Final Resul t [facility] [address] [place] [address] from Last 3 Months Insurance [employer]ICE [employer] [place] CHO[employer] ME Care Teams Biometrician Relationship Specialty Start Date End Date Fe Snow DO [address] [place] [address] PCP - General Family Medicine 01/18/24
--- OUTSIDE RECORDS SUMMARY | 2024-12-17 18:09 | XMS_ITS | Referral Summary ---
Author Organization [place] [id number] [place] Address [address] [place] [address] Care Team Providers Care Applications Programmer Name Role Phone Gwendolyn, Fe English DO Primary Care Provider [phone] Encounters Date Type Department Care Team Description 12/17/2024 1:00 PM CDT Clinical Support [facility] Nutrition Counseling [facility] [place] [address] Prediabetes (Primary Dx); Morbid obesity with BMI of 40.0-44.9, adult (HCC) 12/05/2024 9:20 AM SURVEYOR GEODETIC Office Visit [facility] ENT [address] [facility] 11[address] [place] [address] [place] [address] Belgica Pompa PA Pulsatile tinnitus of left ear (Primary Dx) 12/05/2024 8:00 AM SURVEYOR GEODETIC Procedure visit [facility] Otolaryngology [address] [facility] [address] [place] [address] [place] [address] Alexandra Jerome Au.D. Pulsatile tinnitus of left ear (Primary Dx); Ear pressure, left 11/15/2024 2:30 PM SURVEYOR GEODETIC Clinical Support [facility] Nutrition Counseling [facility] [place] [address] Prediabetes (Primary Dx); Morbid obesity with BMI of 40.0-44.9, adult (HCC) 11/13/2024 12:30 PM SURVEYOR GEODETIC Office [facility] Medical Group Family Medicine [address] [facility] [address] [place] [phone] Fe Snow, Prediabetes (Primary Dx); Adverse effect of drug, subsequent encounter; Gastroesophageal reflux disease without esophagitis; Morbid obesity with BMI of 40.0-44.9, adult (HCC); Anxiety 11/08/2024 3:15 PM SURVEYOR GEODETIC Office Visit [facility] at [address] [phone] Emma Palm NP Anxiety (Primary Dx); Palpitations 11/08/2024 Nurse Triage [address] [place] [phone] Fe Snow DO 11/07/2024 Nurse T[address] [phone] Fe Snow DO 11/06/2024 1:45 PM SURVEYOR GEODETIC Office Visit [address] [place] [phone] Fe Snow DO Prediabetes (Primary Dx); Morbid obesity with BMI of 40.0-44.9, adult ([facility]); Hypertriglyceridemia ; Gastroesophageal reflux disease without esophagitis; Lactose intolerance; Bilateral lower abdominal discomfort 10/22/[address] [phone] Fe Snow DO Additional Services Or Orders from Last 3 Months Allergies Active Allergy Reactions Criticality Noted Date Comments Cow Dander Itching Low 12/05/2024 Histamine Itching Low 12/05/2024 House Dust Mite Itching Low 12/05/2024 [place] Itching Low 12/05/2024 Plantain, Plant Itching Low 12/05/2024 Ragweed Itching Low 12/05/2024 Tree Pollen-[place] Itching Low 12/05/2024 [place] Pollen-[place] Islander Thistle Itching Low 12/05/19 [place] Bark-Red [place]-Borage Itching Low 2024 Medications azelastine (ASTELIN) 137 [...] Immunization Administration Dates Next Due COVID-19 mRNA (Divshot) 0.3 m L (30 mcg) vaccine (12 [...] on file Legal Sex Male 11:48 AM SURVEYOR GEODETIC Gender Identity Not on file Sexual Orientation Not on file Last Filed Vital Signs Vital Sign Reading Time Taken Comments Blood Pressure 105/71 12/05/2024 8:56 AM SURVEYOR GEODETIC Pulse 69 12/05/2024 8:56 AM SURVEYOR GEODETIC Temperature 36.4 C (97.5 F) 11/13/2024 12:45 PM SURVEYOR GEODETIC Respiratory Rate 20 11/13/2024 12:4 5 PM SURVEYOR GEODETIC Oxygen Saturation 99% 11/13/2024 12: 45 PM SURVEYOR GEODETIC Inhaled Oxygen Concentration - - Weight 153.9 kg (339 lb 4.8 oz) 12/17/2024 4:21 PM CDT Height 188 cm (6' 2.02 ) 12/17/2024 4:21 PM CDT Body Mass Index 43.54 12/17/2024 4:21 PM CDT Plan of Treatment Not on file Procedures Procedure Name Priority Date/Time Associated Diagnosis Comments AUDBASE RESULTS 12/05/2024 8:03 AM SURVEYOR GEODETIC HEMOGLOBIN A1C Routine 10/23/2024 10:12 AM SURVEYOR GEODETIC Prediabetes LIPID PANEL Routine 10/23/2024 10:12 AM SURVEYOR GEODETIC Hypertriglyceridem ia COMPREHENSIVE METABOLIC PANEL Routine 10/23/2024 10:12 AM SURVEYOR GEODETIC Prediabetes CBC WITH AUTO DIFFERENTIAL Routine 10/23/2024 10:12 AM SURVEYOR GEODETIC Prediabetes from Last 3 Months Results * AudBase Results (12/05/2024 8:03 AM SURVEYOR GEODETIC) Provider Scanning AUDIOLOGY SERVICES ORDERABLES Final Result * (ABNORMAL) CBC with auto differential (10/23/2024 10:12 AM SURVEYOR GEODETIC) WBC 8.1 3.8 - 10.8 Thousand/u L [...] t Jose Blood 10/23/2024 10:1 2 AM SURVEYOR GEODETIC 10/23/2024 10:15 AM SURVEYOR GEODETIC Narrative [facility] - 10/23/2024 10:05 PM SURVEYOR GEODETIC FASTING:YES FASTING: YES us Fe Snow DO LAB BLOOD ORDERABLES Final Resul t Performing Organization Address [facility] de Phone Number [facility] [address] [place] [address] * (ABNORMAL) Hemoglobin A1c (10/23/2024 10:12 AM SURVEYOR GEODETIC) Hgb A1C 5.7(H) <5.7 % of total Hgb Harish BurudaConcertDeborah Garcia Comment: For someone without known diabetes, [...] for children. Blood 10/23/2024 10:1 2 AM SURVEYOR GEODETIC 10/23/2024 10:15 AM SURVEYOR GEODETIC Narrative [facility] - 10/23/2024 10:05 PM SURVEYOR GEODETIC FASTING:YES FASTING: YES us Fe Snow DO LAB BLOOD ORDERABLES Final Resul t Performing Organization Address [facility] de Phone Number [facility] [address] [place] [address] * (ABNORMAL) Lipid panel (10/23/2024 10:12 AM SURVEYOR GEODETIC) Cholesterol 162 <200 mg/dL [facility] khushbu [...] LDL-C. Dell MORALES et al. RALPH. 2013;310(19): 6901-5334 (http://education.NOBOT/faq/EHE529) Chol/HDL ratio 5.1(H) <5.0 (calc) [facility] Cell[facility]orah Garcia Non-HDL, (LDL+VLDL) 130(H) <130 mg/dL (calc) [facility] Garcia Comment: For patients with diabetes plus 1 major ASCVD risk factor, treating to a non-HDL-C goal of <100 mg/dL (LDL-C of <70 mg/dL) is considered a therapeutic option. Blood 10/23/2024 10:1 2 AM SURVEYOR GEODETIC 10/23/2024 10:15 AM SURVEYOR GEODETIC Narrative [facility] - 10/23/2024 10:05 PM SURVEYOR GEODETIC FASTING:YES FASTING: YES Fe Snow DO LAB BLOOD ORDERABLES Final Resul t HARISH [facility] [address] [place] [address] * Comprehensive metabolic panel (10/23/2024 10:12 AM SURVEYOR GEODETIC) [facility] Glucose 94 65 - 99 mg/dL [facility]or[facility] Garcia Comment: Fasting reference interval BUN 13 7 - 25 mg/dL Harish BurudaConcertDeborah Garcia Creatinine 0.83 0.60 - 1.26 mg/dL INT[facility] Esthela-Sam Garcia eGFR 120 > OR = 60 mL/min/1.7 3m2 [facility] Garcia BUN/creat ratio SEE NOTE: 6 - 22 (calc) Harish BurudaConcertDeborah Garcia Comment: Not Reported: BUN and Creatinine are within reference range. Sodium 138 135 - 146 mmol/L [facility] ClubS khushbu Garcia Potassium, pl 4.4 3.5 - 5.3 mmol/L INTTRA Esthela-S khushbu Garcia Chloride 100 98 - 110 mmol/L [facility] khushbu Garcia CO2 32 20 - 32 mmol/L [facility] khushbu Garcia Calcium 9.8 8.6 - 10.3 [...] t Jose Blood 10/23/2024 10:1 2 AM SURVEYOR GEODETIC 10/23/2024 10:15 AM SURVEYOR GEODETIC Narrative [facility] - 10/23/2024 10:05 PM SURVEYOR GEODETIC FASTING:YES FASTING: YES Fe Snow DO LAB BLOOD ORDERABLES Final Resul t [facility] Harish [address] [place] [address] from Last 3 Months Insurance [place] Care Teams Applications Programmer Relationship Specialty Start Date End Date Fe Snow DO [address] [place] [address] PCP - General Family Medicine 01/18/24
--- OUTSIDE RECORDS SUMMARY | 2024-12-17 18:09 | XMS_ITS | Encounter Summary ---
Author Organization [facility] Healthcare Address [address] [place] [address] Care Team Providers Care Pig Casting Machine Operator Name Role Phone Gwendolyn, Fe English DO Primary Care Provider [phone] Reason for Visit * Reason Comments Prediabetes Obesity Encounter Details Date Type Department Care Team (Latest Contact Info) Description 12/17/2024 1:00 PM CDT Clinical Support [facility] Nutrition Counseling [address] [place] [phone] Prediabetes (Primary Dx); Morbid obesity with BMI [...] on file Legal Sex Male 11:48 AM FIRE FIGHTERS DISPATCHER Gender Identity Not on file Sexual [...] Summary Date: 12/11/24 Room / Location: [facility] Nutrition Counseling Anesthesia Start: Anesthesia Stop: Procedure: FOLLOW UP NUTRITION Diagnosis: Scheduled Providers: Responsible Provider: Anesthesia Type: Not recorded ASA Status: Not recorded Past Medical History: Diagnosis Date Allergies GERD (gastroesophageal reflux disease) Lactose intolerance Nosebleed Prediabetes Sleep apnea Medications and Lab Review: HOME MEDICATIONS : qyqijakzisldp-eaxolqj-iswvydzx (EXCEDRIN MIGRAINE) 250-250-65 mg per tablet azelastine [...] Determined): 153.9 kg (339 lb 4.8 oz) Taylor- St. Jeor Equation (Overweight or Obese Patients): 2564 BMI (Calculated): 43.5 Activity Factor: 1.2 Total Energy Needs using Taylor-St. Jeor: 3076.8 Recommended Kcal for Weight Loss: 2400 (15 kcal/kg CBW) Type of Weight Used for Estimated Carbohydrate Needs: Adjusted Recommended CHO per meal (gm): 75 Recommended CHO per snack (gm): 15 Total Planned Daily Carbohydrate (gm): 270 Type of Weight Used for Estimated Protein : Adjusted Total Protein Estimated Needs (gm): 123.12 Total Fat Needs Based on % of Calories: [address] Jeor Total Fat Estimated Needs (gm): [...] RD Diabetes Education and Nutritional Counseling [facility] documented in this encounter Plan of Treatment Not on file documented as of this encounter Visit Diagnoses Diagnosis Prediabetes- Primary Other abnormal glucose Morbid obesity with BMI of 40.0-44.9, adult (HCC) documented in this encounter Care Teams Pig Casting Machine Operator Relationship Specialty Start Date End Date Fe Snow DO [address] [place] [address] PCP - General Family Medicine 01/18/24 documented as of this encounter
== END 2024-12-17 17:15 | disposition left against medical advice (07) ==
PROVIDERS: Emergency Provider Physician Assistant
DX: N50.89 Other specified disorders of the male genital organs (principal)
CPT/HCPCS: 81003; 99199